=== PATIENT | female | born 1980 | race Caucasian/White ===

== ENCOUNTER → 2024-09-25 10:38 | Outpatient (CLI) | payer OTHER, SELFPAY ==
[2024-09-25 12:44] LABS: TSH w/ Reflex to FT4 1.42 uIU/mL (0.47-4.68)
[2024-09-25 13:03] LABS: Vitamin B12 733 pg/mL (239-931)
== END ==
PROVIDERS: PCP Nurse Practitioner Family; Referring Provider Nurse Practitioner Family; Visit Provider Nurse Practitioner Family
DX: Z13.220 Encounter for screening for lipoid disorders (principal); R53.83 Other fatigue; N18.30 Chronic kidney disease, stage 3 unspecified; Q61.3 Polycystic kidney, unspecified
CPT/HCPCS: 36415; 82306; 82607; 84443

== ENCOUNTER → 2024-10-12 09:16 | Outpatient (CLI) | payer OTHER, SELFPAY ==
[2024-10-12 09:59] LABS: Add Manual Diff / Slide Review NO; Basophils Absolute Auto 0 /uL (0-100); Basophils Percent Auto 0.7 % (0-2); Eosinophils Absolute Auto 200 /uL (0-450); Eosinophils Percent Auto 2.9 % (2-4); Hematocrit 43.3 % (36-46); Hemoglobin 14.8 g/dL (12.0-16.0); Lymphocytes Absolute Auto 2400 /uL (1100-4500); Lymphocytes Percent Auto 36.5 % (25-40); Mean Corpuscular HGB Conc 34.2 % (30-36); Mean Corpuscular Hemoglobin 30.5 PG (26-34); Monocytes Absolute Auto 600 /uL (0-900); Monocytes Percent Auto 9.9 % (3-14); Neutrophils Absolute Auto 3300 /uL (1500-7000); Platelet Count 218 X10^3/uL (150-400); Red Blood Cell Count 4.87 X10^6/uL (4.0-5.2); Red Cell Distribution Width 12.7 % (11.6-14.8); White Blood Cell Count 6.5 X10^3/uL (4.5-11.0)
[2024-10-12 10:27] LABS: Hemoglobin A1C% w Est Avg Glu 4.9 % (4.0-6.0)
[2024-10-12 10:38] LABS: Alanine Aminotransferase 17 IU/L (<35); Albumin 4.9 g/dL (3.5-5.0); Albumin Globulin Ratio 1.8 (1.0-2.8); Alkaline Phosphatase 56 U/L (38-126); Aspartate Aminotransferase 35 IU/L (14-36); BUN Creatinine Ratio 13.5 (6-22); Bilirubin Total 0.6 mg/dL (0.2-1.3); Blood Urea Nitrogen 17 mg/dL (7-17); Carbon Dioxide 23 mmol/L (22-32); Chloride 105 mmol/L (98-107); Cholesterol 219 mg/dL (140-199); Estimated Glomerular Filt Rate 55 mL/min (>60); Globulin 2.7 g/dL (1.7-4.1); Glucose 64 mg/dL (70-100); HDL Cholesterol 78 mg/dL (40-60); HEMOLYSIS 31 (0-50); LDL Cholesterol Calculated 120 mg/dL (<100); Potassium 4.3 mmol/L (3.4-5.1); Sodium 138 mmol/L (137-145); Total Protein 7.6 g/dL (6.3-8.2); Triglycerides 104 mg/dL (35-150)
[2024-10-12 10:57] LABS: Follicle Stimulating Hormone 4.67 mIU/mL; Luteinizing Hormone 7.79 mIU/mL
== END ==
PROVIDERS: PCP Nurse Practitioner Family; Referring Provider Nurse Practitioner Family; Visit Provider Nurse Practitioner Family
DX: N18.30 Chronic kidney disease, stage 3 unspecified (principal); Q61.3 Polycystic kidney, unspecified; G43.109 Migraine with aura, not intractable, without status migrainosus; M79.7 Fibromyalgia; N95.1 Menopausal and female climacteric states
CPT/HCPCS: 36415; 80053; 80061; 83001; 83002; 83036; 85025

== ENCOUNTER → 2025-01-01 10:31 | Outpatient (CLI) | payer OTHER, SELFPAY ==
[2025-01-01 11:48] LABS: Hemoglobin 13.9 g/dL (12.0-16.0)
[2025-01-01 12:04] LABS: BUN Creatinine Ratio 11.3 (6-22); Blood Urea Nitrogen 11 mg/dL (7-17); Calcium 9.7 mg/dL (8.4-10.2); Carbon Dioxide 21 mmol/L (22-32); Chloride 108 mmol/L (98-107); Estimated Glomerular Filt Rate > 60 mL/min (>60); Glucose 83 mg/dL (70-99); HEMOLYSIS 25 (0-50); Potassium 4.5 mmol/L (3.4-5.1); Sodium 141 mmol/L (137-145)
[2025-01-01 12:51] LABS: Creatinine Urine Random 26.91 mg/dL; Protein (Total) Urine Random 10 mg/dL (0-12); Protein Creatinine Ratio Urine 0.37 GRAM/24H
== END ==
PROVIDERS: PCP Nurse Practitioner Family; Referring Provider Nurse Practitioner Family; Visit Provider Student in an Organized Health Care Education/Training Program
DX: N05.9 Unspecified nephritic syndrome with unspecified morphologic changes (principal); D70.9 Neutropenia, unspecified; D63.1 Anemia in chronic kidney disease; R80.9 Proteinuria, unspecified
CPT/HCPCS: 36415; 80048; 82570; 84156; 85014; 85018

== ENCOUNTER → 2025-04-16 06:38 | Outpatient (CLI) | payer OTHER, SELFPAY ==
--- NOTE | 2025-04-16 06:39 | DI.CT.S_ITS ---
PROCEDURE: CT KIDNEY URETER BLADDER (KUB) INDICATIONS: 44 y/o F w/ a solitary left kidney, eval for left stent TECHNIQUE: CT of the abdomen and pelvis was obtained without intravenous contrast. Coronal and sagittal reformats were performed. For radiation dose reduction, the following was used: automated exposure control, adjustment of mA and/or kV according to patient size. COMPARISON: None. FINDINGS: Image quality: Diagnostic. Lower Chest: No significant findings. ABDOMEN: Liver: No contour-deforming mass. Gallbladder: No radiopaque gallstones or wall thickening. Biliary ducts: No biliary dilation. Pancreas: No ductal dilation. Spleen: Size is within normal limits. Adrenal Glands: No adrenal nodules. Kidneys and Ureters: Right nephrectomy. No hydronephrosis. No contour- deforming mass. A few cortical cysts are present. Stomach and Bowel: Normal colonic caliber, without significant wall thickening. Peritoneum: No abnormal intraperitoneal fluid. No free air. Ventral Wall: No significant hernia. Abdominal Nodes: No retroperitoneal or mesenteric adenopathy by size criteria. Vessels: Aorta and inferior vena cava are normal in size. PELVIS: Pelvic Organs: Unremarkable. Bladder: Unremarkable. Pelvic Nodes: No enlarged lymph nodes. Miscellaneous: No inguinal hernias are seen. Bones: No aggressive osseous abnormality. IMPRESSION: Right nephrectomy. No nephroureteral stent visualized. Dictated by: Guanako Villagomez M.D. on 04/16/2025 at 10:44 Approved by: Guanako Villagomez M.D. on 04/16/2025 at 10:53
== END ==
LOC: CT 06:39
PROVIDERS: PCP Nurse Practitioner Family; Referring Provider Urology; Visit Provider Urology
DX: Z96.0 Presence of urogenital implants (principal); N28.1 Cyst of kidney, acquired; Z90.5 Acquired absence of kidney
CPT/HCPCS: 74176

== ENCOUNTER → 2025-05-23 09:16 | Outpatient (CLI) | payer OTHER, SELFPAY ==
[2025-05-23 10:16] LABS: Add Manual Diff / Slide Review NO; Hematocrit 43.7 % (36-46); Hemoglobin 14.6 g/dL (12.0-16.0); Lymphocytes Absolute Auto 1700 /uL (1100-4500); Mean Corpuscular HGB Conc 33.5 % (30-36); Mean Corpuscular Hemoglobin 30.1 PG (26-34); Mean Corpuscular Volume 89.7 fL (80-100); Platelet Count 229 X10^3/uL (150-400)
[2025-05-23 10:58] LABS: Alanine Aminotransferase 19 IU/L (<35); Albumin 5.0 g/dL (3.5-5.0); Albumin Globulin Ratio 1.7 (1.0-2.8); Alkaline Phosphatase 77 U/L (38-126); Blood Urea Nitrogen 13 mg/dL (7-17); Calcium 9.9 mg/dL (8.4-10.2); Carbon Dioxide 25 mmol/L (22-32); Chloride 105 mmol/L (98-107); Estimated Glomerular Filt Rate > 60 mL/min (>60); Globulin 2.9 g/dL (1.7-4.1); Glucose 89 mg/dL (70-99); HEMOLYSIS < 15 (0-50); Potassium 4.9 mmol/L (3.4-5.1); Sodium 140 mmol/L (137-145); Total Protein 7.9 g/dL (6.3-8.2)
[2025-05-23 11:30] LABS: Cortisol AM (Before 10AM) 6.88 ug/dL (4.46-22.7); TSH w/ Reflex to FT4 2.06 uIU/mL (0.47-4.68)
== END ==
PROVIDERS: PCP Nurse Practitioner Family; Referring Provider Nurse Practitioner Family; Visit Provider Nurse Practitioner Family
DX: I95.9 Hypotension, unspecified (principal)
CPT/HCPCS: 36415; 80053; 82024; 82533; 84443; 85025